=== PATIENT | male | born 1985 | race Two or more races ===

== ENCOUNTER → 2016-10-18 | Outpatient (CLI) | payer MEDICAID ==
--- NOTE | 2016-10-18 10:19 | DX ---
Left hand, 3 views. HISTORY: Pain. FINDINGS: Normal alignment. Joint spaces are maintained. No fracture or erosive changes. Soft tissues appear normal. IMPRESSION: Negative left hand radiographs.
== END ==
LOC: BMCIMAGING 09:00
PROVIDERS: ATTEND Internal Medicine
DX: M79.642 Pain in left hand (principal)

== ENCOUNTER 2016-11-29 03:41 | Emergency (ER) | payer MEDICAID ==
[2016-11-29] MEDS ORDERED: ONDANSETRON 4 MG/2 ML VIAL IVP ONE (04:24)
[2016-11-29] MEDS ORDERED: NS 1,000 ML IV ONE (04:24)
[2016-11-29 04:28] LABS: % IMMATURE GRANULYOCYTES 0.3 % (0.0-1.1); ABSOLUTE IMMATURE GRANULOCYTES 0.02 10^3/uL (0.00-0.10); ADD DIFF? NO; ADD MORPH? NO; ADD SCAN? NO; ATYPICAL LYMPHOCYTE FLAG 0 (0-99); FRAGMENT RBC FLAG 0 (0-99); HEMATOCRIT 47.8 % (40.0-51.0); HEMOGLOBIN 16.3 g/dL (13.7-17.5); LEFT SHIFT FLG 0 (0-99); LIPEMIA HEMOLYSIS FLAG 90 (0-99); MEAN CELL HEMOGLOBIN 30.5 pg (27.9-34.1); MEAN CELL HEMOGLOBIN CONCENTR. 34.1 g/dL (32.4-36.7); MEAN CELL VOLUME 89.3 fL (81.5-99.8); MEAN PLATELET VOLUME 11.9 fL (8.7-11.7); PLATELET CLUMPS FLAG 0 (0-99); PLATELET COUNT 189 10^3/uL (150-400); RED BLOOD CELL COUNT 5.35 10^6/uL (4.40-6.38); RED CELL DISTRIBUTION WIDTH 12.9 % (11.5-15.2)
[2016-11-29 04:34] LABS: ALANINE AMINOTRANSFERASE 79 IU/L (21-72); ALBUMIN 4.8 g/dL (3.5-5.0); ALKALINE PHOSPHATASE 107 IU/L (38-126); ANION GAP 14 mEq/L (8-16); ASPARTATE AMINOTRANSFERASE 40 IU/L (17-59); BILIRUBIN,TOTAL 1.5 mg/dL (0.1-1.4); CALCIUM 9.8 mg/dL (8.5-10.4); CARBON DIOXIDE 23 mEq/l (22-31); CHLORIDE 107 mEq/L (97-110); CREATININE 0.8 mg/dL (0.7-1.3); GLOMERULAR FILTRATION RATE > 60; GLUCOSE 121 mg/dL (70-100); SODIUM 144 mEq/L (134-144); TOTAL PROTEIN 7.9 g/dL (6.3-8.2)
[2016-11-29 04:36] VITALS: RESP 16; O2SAT 93
[2016-11-29 05:21] VITALS: BP 132/84; PULSE 82; TEMP 99.3
[2016-11-29] MEDS ORDERED: ONDANSETRON 4MG PREPACK#2 BTL TAKEHOME ONE (05:53)
--- NOTE | 2016-11-29 05:54 | EDPHY ---
H & P Stated Complaint: n/v/d since 2100 last pm Time Seen by Provider: 11/29/16 04:24 HPI/ROS: HPI The patient presents with nausea, vomiting, diarrhea which have been present for the last several hours after eating his dinner. His symptoms began simultaneously and are associated with crampy lower abdominal pain which has been intermittent and mild in severity. He has not had a fever. He is not aware of any sick contacts. REVIEW OF SYSTEMS Constitutional: No fever, no chills. Eyes: No discharge. ENT: No sore throat. Cardiovascular: No chest pain, no palpitations. Respiratory: No cough, no shortness of breath. Gastrointestinal: See HPI Genitourinary: No hematuria. Musculoskeletal: No back pain. Skin: No rashes. Neurological: No headache. PMHx: Anxiety and depression Soc Hx: Works in the hospital on PHYSICAL General Appearance: Alert, no distress Eyes: Pupils equal and round no pallor or injection ENT, Mouth: Mucous membranes dry Respiratory: There are no retractions, lungs are clear to auscultation Cardiovascular: Regular rate and rhythm Gastrointestinal: Abdomen is soft and non-tender, no masses, bowel sounds normal Neurological: A&O, moves all extremities Skin: Warm and dry, no rashes Musculoskeletal: Neck is supple non tender Extremities: symmetrical, full range of motion Psychiatric: Patient is oriented X 3, there is no agitation Source: Patient Exam Limitations: No limitations - Medical/Surgical History Hx Asthma: No Hx Chronic Respiratory Disease: No Hx Diabetes: No Hx Cardiac Disease: No Hx Renal Disease: No Hx Cirrhosis: No Hx Alcoholism: No Hx HIV/AIDS: No Hx Splenectomy or Spleen Trauma: No Other PMH: anxiety/depression, hypertension - Social History Smoking Status: Never smoked Constitutional: Initial Vital Signs Temperature (C) 37.2 C 11/29/16 03:53 Heart Rate 106 H 11/29/16 03:53 Respiratory Rate 18 11/29/16 03:53 Blood Pressure 170/95 H 11/29/16 03:53 O2 Sat (%) 96 11/29/16 03:53 O2 Delivery Mode Room Air Allergies/Adverse Reactions: No Known Allergies Allergy (Unverified 11/29/16 03:55) Home Medications: Medication Instructions Recorded Ondansetron Odt [Zofran Odt 4 mg 4 mg PO Q4 PRN #10 tab 11/29/16 (*)] Unk Anxiety/Dep Med 11/29/16 Unk Sleep Med 11/29/16 Medical Decision Making ED Course/Re-evaluation: In the emergency room, IV was established, patient was given normal saline and Zofran with improvement of his symptoms. Labs were checked and revealed a slightly elevated total bilirubin and a LT. I feel these are likely related more to dehydration then underlying hepatitis. He will be discharged home in good condition. Differential Diagnosis: This is a healthy 21-year-old healthy male who presents from home with several hours of nausea, vomiting, diarrhea with crampy lower abdominal pain. On exam, he is tachycardic, appears dehydrated, abdominal exam is benign. Differential diagnosis includes viral gastroenteritis, toxin mediated enterocolitis, hepatitis, diverticulitis. - Data Points Laboratory Results: Laboratory Results 11/29/16 04:00 11/29/16 04:00 Medications Given: Discontinued Medications Sodium Chloride (Ns) 1,000 mls @ 0 mls/hr IV ONCE ONE PRN Reason: Wide Open Stop: 11/29/16 04:25 Last Admin: 11/29/16 04:26 Dose: 1,000 mls Ondansetron HCl (Zofran) 4 mg IVP EDNOW ONE Stop: 11/29/16 04:25 Last Admin: 11/29/16 04:28 Dose: 4 mg Ondansetron HCl (Zofran Odt 4 Mg Prepack#2) 1 btl TAKEHOME EDNOW ONE Stop: 11/29/16 05:54 Last Admin: 11/29/16 06:01 Dose: 1 btl Departure - Departure Disposition: Home, Routine, Self-Care Clinical Impression: Vomiting and diarrhea Condition: Good Instructions: Ondansetron (By mouth), Narcotic-Analgesic/Acetaminophen (By mouth), Acute Nausea and Vomiting (ED) Additional Instructions: Please return to the emergency room if your worse in any way. Otherwise you should follow up with your regular doctor in 1-2 days. Referrals: Charles Beckman MD [Primary Care Provider] - As per Instructions Prescriptions: Ondansetron Odt [Zofran Odt 4 mg (*)] 4 mg PO Q4 PRN #10 tab PRN Reason: Nausea/Vomiting, Can'T Take Po
== END 2016-11-29 05:57 | disposition home or self-care (01) ==
DX: R19.7 Diarrhea, unspecified (principal); R11.10 Vomiting, unspecified; I10 Essential (primary) hypertension
CPT/HCPCS: 96374; J2405